=== PATIENT | female | born 1985 | race Two or more races ===

== ENCOUNTER → 2022-04-30 | Outpatient (CLI) | payer BC ==
[2022-04-30 11:22] LABS: Basophils # (auto) 0 10 ^3/uL (0-0.2); Basophils % (auto) 0.6 % (0.0-2.0); Eosinophils # (auto) 0 10 ^3/uL (0-0.8); Eosinophils % (auto) 0.7 % (0.0-7.0); Hematocrit 45.5 % (36.0-46.0); Hemoglobin 14.8 g/dL (12.2-16.2); Lymphocytes # (auto) 1.7 10 ^3/uL (0.4-5.4); Lymphocytes % (auto) 34.4 % (10.0-50.0); Mean Corpuscular Hemoglobin 29.2 pg (28.0-32.0); Mean Corpuscular Hgb Conc. 32.4 g/dL (32.0-36.0); Mean Corpuscular Volume 90.1 fL (80.0-100.0); Monocytes # (auto) 0.3 10 ^3/uL (0-1.3); Neutrophils % (auto) 59.3 % (37.0-80.0); Red Blood Cells 5.05 10^6/uL (4.0-5.20); Red Cell Distribution Width 13.8 % (11.8-14.3); White Blood Cell 5.1 10^3/uL (4.4-10.8)
[2022-04-30 11:51] LABS: Albumin 3.9 g/dL (3.4-5.0); BUN/Creatinine Ratio 14.7; Potassium 4.4 mmol/L (3.5-5.1)
[2022-04-30 11:53] LABS: Hepatitis B Surface Antibody Negative (Negative)
[2022-04-30 11:54] LABS: Leuteinizing Hormone 40.9 IU/L
[2022-04-30 11:55] LABS: Follicle Stimulating Hormone 88.49 IU/L (SEE BELOW)
[2022-04-30 12:04] LABS: Bilirubin, Total 0.3 mg/dL (0.2-1.0); Calcium 9.3 mg/dL (8.5-10.1); Total Protein 7.6 g/dL (6.4-8.2)
[2022-04-30 12:31] LABS: Hepatitis A Total Antibody Negative (Negative)
[2022-04-30 13:18] LABS: Hepatitis C Antibody Negative (Negative)
[2022-05-01 06:06] LABS: RPR Non Reactive (Non Reactive)
== END | disposition home or self-care (01) ==
LOC: LAB 10:33
PROVIDERS: ATTEND Obstetrics & Gynecology
DX: N91.2 Amenorrhea, unspecified (principal); Z72.51 High risk heterosexual behavior
CPT/HCPCS: 36415; 80053; 80061; 82670; 83001; 83002; 84144; 84403; 84443; 85025; 86592; 86703; 86704; 86706; 86708; 86803; 87086; 87340

== ENCOUNTER 2022-11-02 21:01 | Emergency (ER) | payer BC, MEDICAID ==
[~2022-11-02] VITALS: Ht 154.9 cm; Wt 89.0 kg
[2022-11-02 21:20] LABS: Basophils # (auto) 0.1 10 ^3/uL (0-0.2); Eosinophils # (auto) 0.1 10 ^3/uL (0-0.8); Eosinophils % (auto) 1.5 % (0.0-7.0); Hemoglobin 14.7 g/dL (12.2-16.2); Lymphocytes # (auto) 4.1 10 ^3/uL (0.4-5.4); Lymphocytes % (auto) 44.2 % (10.0-50.0); Mean Corpuscular Hemoglobin 30.6 pg (28.0-32.0); Mean Corpuscular Hgb Conc. 34.2 g/dL (32.0-36.0); Mean Corpuscular Volume 89.6 fL (80.0-100.0); Monocytes # (auto) 0.6 10 ^3/uL (0-1.3); Monocytes % (auto) 6.3 % (0.0-12.0); Neutrophils # (auto) 4.3 10 ^3/uL (1.6-8.6); Nucleated Red Blood Cells % 0.2 %; Red Blood Cells 4.79 10^6/uL (4.0-5.20); Red Cell Distribution Width 13.6 % (11.8-14.3); White Blood Cell 9.2 10^3/uL (4.4-10.8)
[2022-11-02 21:36] LABS: INR 0.87 (0.9-1.15); Partial Thromboplastin Time 33.7 sec (24.6-33.4)
[2022-11-02 21:41] LABS: Albumin 3.7 g/dL (3.4-5.0); BUN/Creatinine Ratio 25.7; Calcium 8.7 mg/dL (8.5-10.1); Magnesium 2.3 mg/dL (1.6-2.6); Potassium 3.8 mmol/L (3.5-5.1)
[2022-11-02 21:44] LABS: Bilirubin, Total 0.2 mg/dL (0.2-1.0); Total Protein 7.4 g/dL (6.4-8.2)
[2022-11-03 03:18] VITALS: BP 137/47
== END 2022-11-03 03:23 | disposition home or self-care (01) ==
LOC: ER 21:01
DX: R07.89 Other chest pain (principal); R73.9 Hyperglycemia, unspecified; E87.8 Other disorders of electrolyte and fluid balance, not elsewhere classified; F41.9 Anxiety disorder, unspecified; F32.9 Major depressive disorder, single episode, unspecified
CPT/HCPCS: 36415; 71046; 80053; 83735; 83880; 84484; 85025; 85610; 85730; 93005

== ENCOUNTER 2024-02-25 19:44 | Inpatient (IN) | payer BC, MEDICAID ==
[~2024-02-25] VITALS: Ht 154.9 cm; Wt 94.8 kg
[2024-02-25 20:24] LABS: Basophils # (auto) 0.1 10 ^3/uL (0-0.2); Basophils % (auto) 0.6 % (0.0-2.0); Eosinophils # (auto) 0 10 ^3/uL (0-0.8); Eosinophils % (auto) 0.1 % (0.0-7.0); Hematocrit 43.8 % (36.0-46.0); Hemoglobin 14.9 g/dL (12.2-16.2); Lymphocytes # (auto) 2.5 10 ^3/uL (0.4-5.4); Lymphocytes % (auto) 17.8 % (10.0-50.0); Mean Corpuscular Hemoglobin 30.1 pg (28.0-32.0); Mean Corpuscular Volume 88.5 fL (80.0-100.0); Monocytes # (auto) 1.1 10 ^3/uL (0-1.3); Monocytes % (auto) 7.6 % (0.0-12.0); Neutrophils # (auto) 10.6 10 ^3/uL (1.6-8.6); Neutrophils % (auto) 73.9 % (37.0-80.0); Red Blood Cells 4.94 10^6/uL (4.0-5.20); White Blood Cell 14.3 10^3/uL (4.4-10.8)
[2024-02-25 20:24] LABS: Urine Bacteria None Seen /hpf (None Seen)
[2024-02-25] MEDS: SODIUM CHLORIDE 0.9% 1,000 ML IV ONE (20:24)
[2024-02-25 20:37] LABS: Urine Blood 1+ /uL (Negative); Urine Clarity Clear (Clear); Urine Color Light-Yellow (Yellow); Urine Protein, UAD Negative (Negative); Urine Specific Gravity 1.019 (1.001-1.035); Urine Urobilinogen Normal (Negative); Urine WBC 2 /hpf (0 - 5); Urine pH 6.5 (5.0-9.0)
[2024-02-25 20:46] LABS: Alanine Aminotransferase 18 U/L (7-40); Albumin 4.7 g/dL (3.2-4.8); Alkaline Phosphatase 84 U/L (46-116); Anion Gap 7 (5-15); Aspartate Aminotransferase 13 U/L (13-40); BUN/Creatinine Ratio 13.5 (10.0-20.0); Blood Urea Nitrogen 10 mg/dL (9-23); Calcium 10.1 mg/dL (8.7-10.4); Carbon Dioxide 25 mmol/L (20-30); Chloride 105 mmol/L (98-107); Glucose 121 mg/dL (74-106); Lipase 33 U/L (12-53); Potassium 3.7 mmol/L (3.5-5.1); Sodium 137 mmol/L (136-145)
[2024-02-25 20:47] LABS: Bilirubin, Total 0.6 mg/dL (0.2-1.0); Total Protein 7.7 g/dL (5.7-8.2)
[2024-02-25 21:15] VITALS: PULSE 97; RESP 16; O2SAT 100
[2024-02-25] MEDS: ONDANSETRON HCL 4 MG/2 ML VIAL IV ONE (21:45)
[2024-02-25] MEDS: MORPHINE SULFATE INJ 2 MG/ml SYRG IV ONE (21:46)
[2024-02-25] MEDS: PIPERACILLIN-TAZO 4.5GM 100 ML IV ONE (22:14)
[2024-02-26] MEDS ORDERED: HYDROcodone-ACET 5/325MG TAB PO PRN (00:30)
[2024-02-26] MEDS ORDERED: MORPHINE SULFATE INJ 2 MG/ml SYRG IV PRN ×2 (00:30→05:15)
[2024-02-26] MEDS ORDERED: DOCUSATE SOD 100 MG CAP PO PRN (00:30)
[2024-02-26] MEDS: ACETAMINOPHEN 325 MG TAB PO PRN (02:51)
[2024-02-26] MEDS: ONDANSETRON HCL 4 MG/2 ML VIAL IV PRN (03:07)
[2024-02-26] MEDS: D5W/SOD CHLO 0.9% 1,000 ML IV SCH (03:30)
[2024-02-26 03:52] VITALS: RESP 15; O2SAT 98
[2024-02-26] MEDS ORDERED: NITROGLYCERIN 0.4 MG SL TAB SL PRN (05:15)
[2024-02-26] MEDS: PIPERACILLIN-TAZOB 3.375GM 100 ML IV SCH (05:19)
[2024-02-26 05:36] LABS: Basophils # (auto) 0.1 10 ^3/uL (0-0.2); Basophils % (auto) 0.5 % (0.0-2.0); Eosinophils # (auto) 0 10 ^3/uL (0-0.8); Eosinophils % (auto) 0.1 % (0.0-7.0); Hematocrit 37.7 % (36.0-46.0); Hemoglobin 12.7 g/dL (12.2-16.2); Lymphocytes # (auto) 2.5 10 ^3/uL (0.4-5.4); Lymphocytes % (auto) 18.4 % (10.0-50.0); Mean Corpuscular Hgb Conc. 33.7 g/dL (32.0-36.0); Mean Corpuscular Volume 89.1 fL (80.0-100.0); Monocytes # (auto) 1.2 10 ^3/uL (0-1.3); Monocytes % (auto) 9.1 % (0.0-12.0); Neutrophils # (auto) 9.8 10 ^3/uL (1.6-8.6); Neutrophils % (auto) 71.9 % (37.0-80.0); Red Blood Cells 4.23 10^6/uL (4.0-5.20); Red Cell Distribution Width 13.9 % (11.8-14.3); White Blood Cell 13.6 10^3/uL (4.4-10.8)
[2024-02-26 05:52] LABS: Alanine Aminotransferase 15 U/L (7-40); Albumin 4.1 g/dL (3.2-4.8); Alkaline Phosphatase 72 U/L (46-116); Anion Gap 4 (5-15); Aspartate Aminotransferase 10 U/L (13-40); Blood Urea Nitrogen 8 mg/dL (9-23); Calcium 9.6 mg/dL (8.7-10.4); Carbon Dioxide 27 mmol/L (20-30); Chloride 106 mmol/L (98-107); Glucose 109 mg/dL (74-106); Potassium 4.1 mmol/L (3.5-5.1); Sodium 137 mmol/L (136-145)
[2024-02-26 05:53] LABS: Bilirubin, Total 0.6 mg/dL (0.2-1.0); Total Protein 6.9 g/dL (5.7-8.2)
[2024-02-26 07:45] VITALS: PULSE 85; RESP 16; O2SAT 97
[2024-02-26 13:20] VITALS: BP 99/68; PULSE 89; RESP 18; TEMP 97.6; O2SAT 96; O2SAT 98
[2024-02-26 17:00] VITALS: BP 100/61; PULSE 71; RESP 15; TEMP 98.3; O2SAT 96
[2024-02-26] MEDS ORDERED: LAMO150T26 PO (18:39)
[2024-02-26] MEDS ORDERED: BUPR150T8 PO (18:39)
[2024-02-26] MEDS ORDERED: BUSP10TA31 PO (18:39)
[2024-02-26 20:00] VITALS: PULSE 79; RESP 16; O2SAT 98
[2024-02-26 21:00] VITALS: BP 107/59; PULSE 79; RESP 16; TEMP 98; O2SAT 98
[2024-02-26] MEDS: IBUPROFEN 800 MG TAB PO PRN (22:37)
[2024-02-27 05:00] VITALS: BP 106/54; PULSE 76; RESP 18; TEMP 97.8; O2SAT 97
[2024-02-27 05:53] LABS: Basophils # (auto) 0 10 ^3/uL (0-0.2); Basophils % (auto) 0.4 % (0.0-2.0); Eosinophils # (auto) 0.1 10 ^3/uL (0-0.8); Eosinophils % (auto) 1.4 % (0.0-7.0); Hematocrit 36.9 % (36.0-46.0); Hemoglobin 12.5 g/dL (12.2-16.2); Lymphocytes # (auto) 2.3 10 ^3/uL (0.4-5.4); Lymphocytes % (auto) 41.1 % (10.0-50.0); Mean Corpuscular Hgb Conc. 33.7 g/dL (32.0-36.0); Monocytes # (auto) 0.4 10 ^3/uL (0-1.3); Monocytes % (auto) 7.8 % (0.0-12.0); Neutrophils # (auto) 2.8 10 ^3/uL (1.6-8.6); Neutrophils % (auto) 49.3 % (37.0-80.0); Red Blood Cells 4.15 10^6/uL (4.0-5.20); Red Cell Distribution Width 13.6 % (11.8-14.3); White Blood Cell 5.7 10^3/uL (4.4-10.8)
[2024-02-27 06:11] LABS: Alanine Aminotransferase 15 U/L (7-40); Alkaline Phosphatase 68 U/L (46-116); Anion Gap 4 (5-15); Calcium 9.4 mg/dL (8.5-10.1); Carbon Dioxide 28 mmol/L (20-30); Chloride 108 mmol/L (98-107); Glucose 98 mg/dL (74-106); Potassium 4.1 mmol/L (3.5-5.1); Sodium 140 mmol/L (136-145)
[2024-02-27 06:12] LABS: Aspartate Aminotransferase 9 U/L (13-40); Magnesium 2.2 mg/dL (1.6-2.6)
[2024-02-27 06:14] LABS: Bilirubin, Total 0.5 mg/dL (0.2-1.0); Total Protein 6.4 g/dL (5.7-8.2)
[2024-02-27] MEDS: lamoTRIgine 100 MG TAB PO SCH (06:15)
[2024-02-27] MEDS: buPROPion HCL 75 MG TAB PO SCH (06:16)
[2024-02-27 06:47] LABS: BUN/Creatinine Ratio 7.1 (10.0-20.0); Blood Urea Nitrogen < 5 mg/dL (9-23)
[2024-02-27 08:00] VITALS: PULSE 72; RESP 18; O2SAT 99
[2024-02-27 09:28] VITALS: BP 105/66; PULSE 72; RESP 18; TEMP 97.6; O2SAT 99
[2024-02-27] MEDS: DOCUSATE SOD 100 MG CAP PO SCH (12:16)
[2024-02-27] MEDS: PANTOPRAZOLE 40 MG/10 ML VIAL INJ IV ONE (12:16)
[2024-02-27 13:29] VITALS: BP 112/68; PULSE 77; RESP 17; TEMP 97.4; O2SAT 97
[2024-02-27] MEDS ORDERED: HYDR-4902 PO (15:23)
[2024-02-27] MEDS ORDERED: ZOFR4T PO (15:23)
[2024-02-27] MEDS ORDERED: AUG875T PO (15:23)
[2024-02-27] MEDS ORDERED: CIPR-173 PO (15:49)
[2024-02-27] MEDS ORDERED: METR-344 PO (15:49)
[2024-02-27 16:58] VITALS: BP 114/63; PULSE 76; RESP 18; TEMP 97.7; O2SAT 98
[2024-02-27 17:00] VITALS: BP 114/63; PULSE 76; RESP 18; TEMP 97.7; O2SAT 98
[2024-02-27] MEDS ORDERED: PIPERACILLIN-TAZOB 3.375GM 100 ML IV SCH (18:00)
[2024-02-28] MEDS ORDERED: PANTOPRAZOLE 40 MG/10 ML VIAL INJ IV SCH (10:00)
[2024-03-02 11:24] LABS: Hepatitis B Surface Antigen Negative (Negative)
[2024-03-02 11:45] LABS: Hepatitis C Antibody Negative (Negative)
== END 2024-02-27 17:25 | disposition home or self-care (01) | DRG 392 ==
LOC: ER 19:44 → OVERFLOW 02-26 05:06 → TELE-CENTR 02-26 13:20 → CENTRAL 02-26 14:37
PROVIDERS: ADMIT Nurse Practitioner Family; ATTEND Nurse Practitioner Family
DX: K57.92 Diverticulitis of intestine, part unspecified, without perforation or abscess without bleeding (principal); F32.A Depression, unspecified; F41.9 Anxiety disorder, unspecified; K52.9 Noninfective gastroenteritis and colitis, unspecified; E86.0 Dehydration; Z79.899 Other long term (current) drug therapy
CPT/HCPCS: 36415; 74176; 80053; 81001; 83690; 83735; 84702; 85025; 86803; 87040; 87340; G0378; J2405; J2470; J2543

== ENCOUNTER 2025-01-04 03:45 | Emergency (ER) | payer BC ==
[~2025-01-04] VITALS: Ht 154.9 cm; Wt 93.5 kg
[2025-01-04 03:45] VITALS: BP 109/74; PULSE 81; RESP 16; TEMP 98.1; O2SAT 96
[~2025-01-04 03:45] MED LIST: BUPR150T8 PO; BUSP10TA31 PO; CIPR-173 PO; HYDR-4902 PO; LAMO150T26 PO; METR-344 PO; ZOFR4T PO
--- NOTE | 2025-01-04 04:21 | ED.PDOC ---
GI ASSESSMENT HPI Comments 39 year old female presents to the ED with a chief complaint of abdominal pain onset today (01/04/25) around 01:30. PMHx Diverticulitis. Patient states she woke up today experiencing abdominal pain, LLQ region described as a twisting sensation as well as nausea, took medication. Patient had colonoscopy done 1 week ago. For dinner, patient had in n out and believes it caused a flare up. Denies vomiting, diarrhea, dizziness, chest pain, dysuria, hematuria. No other symptoms or modifying factors present at this time. Chief Complaint: Abdominal Pain Time Seen by MD: 04:10 Reviewed Notes: Medications, Allergies Allergies: Coded Allergies: NO KNOWN ALLERGIES (Unverified , 11/02/22) Home Meds Active Scripts Metronidazole (Flagyl) 500 Mg Tab, 1 TAB PO BID for 6 Days, #12 TAB Prov:SEAN GOULD MD 01/04/25 Ciprofloxacin Hcl (Cipro) 250 Mg Tab, 250 MG PO BID for 7 Days, #14 TAB Prov:SEAN GOULD MD 01/04/25 Metronidazole (Flagyl) 500 Mg Tab, 1 TAB PO TID, #30 TAB Prov:AISHA GILLIAM MD 02/27/24 Ciprofloxacin Hcl (Cipro) 500 Mg Tab, 1 TAB PO BID, #20 TAB Prov:AISHA GILLIAM MD 02/27/24 Ondansetron Odt 4MG Tab (ZOFRAN PO) 4 Mg Tb, 4 MG PO Q8HPRN PRN, #14 TAB ODT TAB-DISSOLVE IN MOUTH, THEN SWALLOW Prov:AISHA GILLIAM MD 02/27/24 Hydrocodone-Acetaminophen (Hydrocodone Bitartrate/AC 5-325 mg) 1 Tab Tab, 1 TAB PO Q8HP PRN, #10 TAB Prov:AISHA GILLIAM MD 02/27/24 Reported Medications Lamotrigine (Lamotrigine) 150 Mg Tab, 1 TAB PO DAILY, #30 TAB 1 Refill 02/26/24 Buspirone HCl (Buspirone HCl) 10 Mg Tab, 5 MG PO, TAB 02/26/24 Bupropion Hcl (Wellbutrin Sr) 150 Mg Tab, 1 TAB PO BID, #60 TAB 5 Refills 02/26/24 Information Source: Patient Mode of Arrival: Ambulatory Timing: Hours Duration: Since onset Prehospital treatment: Other (nausea medication) Quality: Sharp Vomitus: None Severity: Moderate Recent: None Recent Hx of: None Pain Location: LLQ Modifying Factors: Nothing Associated sign and symptoms: Nausea, Abdominal Pain Past Medical History PAST MEDICAL HISTORY: Anxiety, Depression Surgical History: Denies all surgeries SHANK CUTTER History: Denies all SHANK CUTTER Hx Family History Family History: Reviewed,noncontributory to illness Social History Smoker: Non-Smoker Alcohol: Rarely Drugs: Denies Drug Use Lives In: Home Constitutional: denies: chills, diaphoresis, fatigue, fever, malaise, sweats, weakness, others EENTM: denies: blurred vision, double vision, ear bleeding, ear discharge, ear drainage, ear pain, ear ringing, eye pain, eye redness, hearing loss, mouth pain, mouth swelling, nasal discharge, nose bleeding, nose congestion, nose pain, photophobia, tearing, throat pain, throat swelling, voice changes, others Respiratory: denies: cough, hemoptysis, orthopnea, SOB at rest, shortness of breath, SOB with excertion, stridor, wheezing, others Cardiovascular: denies: chest pain, dizzy spells, diaphoresis, Dyspnea on exertion, edema, irregular heart beat, left arm pain, lightheadedness, pa lpitations, PND, syncope, others Gastrointestinal: reports: abdominal pain, nausea; denies: abdomen distended, blood streaked bowels, constipated, diarrhea, dysphagia, difficulty swallowing, hematemesis, melena, poor appetite, poor fluid intake, rectal bleeding, rectal pain, vomiting, others Genitourinary: denies: abnormal vagina bleeding, burning, dyspareunia, dysuria, flank pain, frequency, hematuria, incontinence, pain, , vagina discharge, urgency, others Neurological: denies: dizziness, fainting, headache, left sided numbness, left sided weakness, numbness, paresthesia, pre-existing deficit, right sided numbness, right sided weakness, seizure, speech problems, tingling, tremors, weakness, others Musculoskeletal: denies: back pain, gout, joint pain, joint swelling, muscle pain, muscle stiffness, neck pain, others Integumetry: denies: bruises, change in color, change in hair/nails, dryness, laceration, lesions, lumps, rash, wounds, others Allergic/Immunocompromised: denies: Difficulty Healing, Frequent Infections, Hives, Itching, others Hematologic/Lymphatic: denies: anemia, blood clots, easy bleeding, easy bruising, swollen glands, others Endocrine: denies: excessive hunger, excessive sweating, excessive thirst, excessive urination, flushing, intolerance to cold, intolerance to heat, un explained weight gain, unexplained weight loss, others Psychiatric: denies: anxiety, bipolar disorder, depression, hopeless, panic disorder, schizophrenia, sleepless, suicidal, others All Other Systems: Reviewed and Negative Physical Exam General Appearance: No Apparent Distress, Normal HEENT: Normal ENT Inspection, Pharynx Normal, TMs Normal Neck: Full Range of Motion, Non-Tender, Normal, Normal Inspection Respiratory: Chest Non-Tender, Lungs Clear, No Accessory Muscle Use, No Respiratory Distress, Normal Breath Sounds Cardiovascular: No Edema, No JVD, No Murmur, No Gallop, Normal Peripheral Pu lses, Regular Rate/Rhythm Breast Exam: Deferred Gastrointestinal: No Organomegaly, Non Tender, No Pulsatile Mass, Normal Bowel Sounds, Soft Genitalia: Deferred Pelvic: Deferred Rectal: Deferred Extremities: No calf tenderness, Normal capillary refill, Normal inspection, Normal range of motion, Non-tender, No pedal edema Musculoskeletal : Apperance: Normal Neurologic: Alert, bulk driver II-XII nml as Tested, No Motor Deficits, Normal Affect, Normal Mood, No Sensory Deficits Cerebellar Function: Normal Reflexes: Normal Skin: Dry, Normal Color, Warm Lymphatic: No Adenopathy Was a procedure done? Was a procedure done?: No GI differential Dx Differential Diagnosis: Appendicitis, Bowel Obstruction, Constipation, Diverticular disease, Gastritis/PUD, Gastroenteritis, Ischemic Bowel, Other X-Ray, Labs, Meds, VS Vital Signs Date Time Temp Pulse Resp B/P (MAP) Pulse Ox O2 Delivery O2 Flow Rate FiO2 01/04/25 03:45 98.1 81 16 109/74 (86) 96 98.1 Lab Test 01/04/25 04:27 01/04/25 04:08 Range/Units White Blood Count 8.7 4.4-10.8 10^3/uL Red Blood Count 4.89 4.0-5.20 10^6/uL Hemoglobin 14.8 12.2-16.2 g/dL Hematocrit 43.4 36.0-46.0 % Mean Corpuscular Volume 88.9 80.0-100.0 fL Mean Corpuscular Hemoglobin 30.3 28.0-32.0 pg Mean Corpuscular Hemoglobin Concent 34.1 32.0-36.0 g/dL Red Cell Distribution Width 13.9 11.8-14.3 % Platelet Count 310 140-450 10^3/uL Mean Platelet Volume 7.6 6.9-10.8 fL Neutrophils (%) (Auto) 69.9 37.0-80.0 % Lymphocytes (%) (Auto) 22.9 10.0-50.0 % Monocytes (%) (Auto) 6.0 0.0-12.0 % Eosinophils (%) (Auto) 0.6 0.0-7.0 % Basophils (%) (Auto) 0.6 0.0-2.0 % Neutrophils # (Auto) 6.1 1.6-8.6 10 ^3/uL Lymphocytes # (Auto) 2.0 0.4-5.4 10 ^3/uL Monocytes # (Auto) 0.5 0-1.3 10 ^3/uL Eosinophils # (Auto) 0.1 0-0.8 10 ^3/uL Basophils # (Auto) 0 0-0.2 10 ^3/uL Nucleated Red Blood Cells 0.1 % Sodium Level 142 136-145 mmol/L Potassium Level 3.6 3.5-5.1 mmol/L Chloride Level 106 98-107 mmol/L Carbon Dioxide Level 25 20-31 mmol/L Anion Gap 11 5-15 Blood Urea Nitrogen 13 9-23 mg/dL Creatinine 0.89 0.550-1.02 mg/dL Glomerular Filtration Rate Calc 85 >90 mL/min BUN/Creatinine Ratio 14.6 10.0-20.0 Serum Glucose 102 74-106 mg/dL Calcium Level 9.4 8.7-10.4 mg/dL Total Bilirubin 0.3 0.2-1.0 mg/dL Aspartate Amino Transferase (AST) 19 13-40 U/L Alanine Aminotransferase (ALT) 20 7-40 U/L Alkaline Phosphatase 83 46-116 U/L Total Protein 7.3 5.7-8.2 g/dL Albumin 4.6 3.2-4.8 g/dL Lipase 39 12-53 U/L Urine Color Yellow Yellow Urine Clarity Clear Clear Urine pH 5.5 5.0-9.0 Urine Specific Bard 1.021 1.001-1.035 Urine Protein Negative Negative Urine Ketones Negative Negative Urine Blood Trace H Negative /uL Urine Nitrite Negative Negative Urine Bilirubin Negative Negative Urine Urobilinogen Normal Negative mg/dL Urine Leukocyte Esterase Negative Negative /uL Urine RBC 4 0 - 4 /hpf Urine Microscopic WBC 4 0-5 /HPF Urine Squamous Epithelial Cells Mod <5 /hpf Urine Bacteria None seen None Seen /hpf Urine Mucus Few None Seen Urine Glucose Normal Normal mg/dL Current Medications Medications (Trade) Dose Ordered Sig/Shalonda Route Start Time Stop Time Status Last Admin Sodium Chloride 1,000 ml @ 1,000 mls/hr Q1H ONCE IVB 01/04/25 04:30 01/04/25 05:29 DC 01/04/25 04:48 Time of 1ST Reevaluation: 04:40 Reevaluation 1ST: Unchanged Patient Education/Counseling: Diagnosis, Treatment, Prognosis Family Education/Counseling: No Family Present Departure 1 Departure Time of Disposition: 06:00 Impression: Primary Impression: Acute abdominal pain Additional Impression: Diverticulitis of intestine, part unspecified, without perforation or abscess without bleeding Disposition: 01 HOME / SELF CARE / HOMELESS Condition: Stable e-Prescriptions Metronidazole (Flagyl) 500 Mg Tab 1 TAB PO BID for 6 Days, #12 TAB Prov: SEAN GOULD MD 01/04/25 Ciprofloxacin Hcl (Cipro) 250 Mg Tab 250 MG PO BID for 7 Days, #14 TAB Prov: SEAN GOULD MD 01/04/25 Discharged With: Self Critical Care Note Critical Care Time?: No Stability Stability form required: No I personally scribed for SEAN GOULD MD ([email or web address]) on 01/04/25 at 04:21. Electronically submitted by Gretchen Gentile ([email or web address]). SEAN GOULD MD January 04, 2025 04:21
[2025-01-04 04:41] LABS: Urine Bacteria None Seen /hpf (None Seen)
[2025-01-04] MEDS: SODIUM CHLORIDE 0.9% 1,000 ML IVB ONE (04:48)
[2025-01-04 04:50] LABS: Basophils # (auto) 0 10 ^3/uL (0-0.2); Basophils % (auto) 0.6 % (0.0-2.0); Eosinophils # (auto) 0.1 10 ^3/uL (0-0.8); Eosinophils % (auto) 0.6 % (0.0-7.0); Hematocrit 43.4 % (36.0-46.0); Hemoglobin 14.8 g/dL (12.2-16.2); Lymphocytes % (auto) 22.9 % (10.0-50.0); Mean Corpuscular Hemoglobin 30.3 pg (28.0-32.0); Mean Corpuscular Hgb Conc. 34.1 g/dL (32.0-36.0); Mean Corpuscular Volume 88.9 fL (80.0-100.0); Monocytes # (auto) 0.5 10 ^3/uL (0-1.3); Neutrophils # (auto) 6.1 10 ^3/uL (1.6-8.6); Neutrophils % (auto) 69.9 % (37.0-80.0); Nucleated Red Blood Cells % 0.1 %; Platelet Count (auto) 310 10^3/uL (140-450); Red Blood Cells 4.89 10^6/uL (4.0-5.20); Red Cell Distribution Width 13.9 % (11.8-14.3); White Blood Cell 8.7 10^3/uL (4.4-10.8)
[2025-01-04 04:54] LABS: Alanine Aminotransferase 20 U/L (7-40); Albumin 4.6 g/dL (3.2-4.8); Alkaline Phosphatase 83 U/L (46-116); Anion Gap 11 (5-15); Aspartate Aminotransferase 19 U/L (13-40); BUN/Creatinine Ratio 14.6 (10.0-20.0); Blood Urea Nitrogen 13 mg/dL (9-23); Calcium 9.4 mg/dL (8.7-10.4); Carbon Dioxide 25 mmol/L (20-31); Chloride 106 mmol/L (98-107); Glucose 102 mg/dL (74-106); Lipase 39 U/L (12-53); Potassium 3.6 mmol/L (3.5-5.1); Sodium 142 mmol/L (136-145); Total Protein 7.3 g/dL (5.7-8.2)
[2025-01-04 04:55] LABS: Bilirubin, Total 0.3 mg/dL (0.2-1.0)
[2025-01-04 05:07] LABS: Urine Blood TRACE /uL (Negative); Urine Clarity Clear (Clear); Urine Color Yellow (Yellow); Urine Mucus FEW (None Seen); Urine Protein, UAD Negative (Negative); Urine Specific Gravity 1.021 (1.001-1.035); Urine Squamous Epithelial Cell MOD /hpf (<5); Urine Urobilinogen Normal (Negative); Urine WBC 4 /HPF (0-5); Urine pH 5.5 (5.0-9.0)
--- NOTE | 2025-01-04 05:23 | DVH ---
EXAM: CT Abdomen and Pelvis With Intravenous Contrast CLINICAL INDICATION: abd pain LLQ TECHNIQUE: Axial computed tomography images of the abdomen and pelvis with intravenous contrast. Th is CT exam was performed using one or more of the following dose reduction techniques: automated exp osure control, adjustment of the mA and/or kV according to patient size, and/or use of iterative bee nstruction technique. CONTRAST: COMPARISON: None FINDINGS: ARTIFACTS: Motion artifact. LUNG BASES: Unremarkable. No mass. No consolidation. MEDIASTINUM: Small esophageal hiatal hernia. ABDOMEN: LIVER: Ill-defined hypodense lesion of the right hepatic lobe measuring up to 1.1 cm. This could b e hemangiomas. GALLBLADDER AND BILE DUCTS: Unremarkable. No calcified stones. No ductal dilation. PANCREAS: Unremarkable. No mass. No ductal dilation. SPLEEN: Unremarkable. No splenomegaly. ADRENALS: Unremarkable. No mass. KIDNEYS AND URETERS: Unremarkable. No stones within either kidney. No hydronephrosis. STOMACH AND BOWEL: Fecal retention in the colon consistent with constipation. No obstruction. No mucosal thickening. PELVIS: APPENDIX: No findings to suggest acute appendicitis. BLADDER: Unremarkable. No mass. REPRODUCTIVE: Unremarkable as visualized. ABDOMEN and PELVIS: INTRAPERITONEAL SPACE: Unremarkable. No free air. No significant fluid collection. BONES/JOINTS: No acute fracture. No dislocation. SOFT TISSUES: Unremarkable. VASCULATURE: Unremarkable. No abdominal aortic aneurysm. LYMPH NODES: Unremarkable. No enlarged lymph nodes. OTHER FINDINGS: . . IMPRESSION: 1. Small esophageal hiatal hernia. 2. Fecal retention in the colon consistent with constipation. 3. No obstructive uropathy.
[2025-01-04] MEDS: IOHEXOL 300 MG/ML 100ML BOTTLE IJ ONE (05:25)
[2025-01-04] MEDS ORDERED: CIPR-273 PO (05:33)
[2025-01-04] MEDS ORDERED: METR-344 PO (05:33)
== END 2025-01-04 05:58 | disposition home or self-care (01) ==
LOC: ER 03:45
DX: K57.32 Diverticulitis of large intestine without perforation or abscess without bleeding (principal); F32.A Depression, unspecified; F41.9 Anxiety disorder, unspecified; Z79.899 Other long term (current) drug therapy
CPT/HCPCS: 36415; 74177; 80053; 81001; 83690; 85025; 96360; 99285; J7030; Q9967